=== PATIENT | female | born 1950 | race Caucasian/White ===

== ENCOUNTER → 2019-07-04 | Outpatient (CLI) | payer OTHER, MEDICARE | LOC: SJCVC 14:34 | DX: R06.09 Other forms of dyspnea (principal); I10 Essential (primary) hypertension; E78.5 Hyperlipidemia, unspecified; R06.00 Dyspnea, unspecified ==

== ENCOUNTER → 2019-10-09 | Outpatient (CLI) | payer OTHER, MEDICARE ==
[~2019-10-09] MED LIST: BENAZEPRIL HCL20 MG PO; CALCIUM CARBON500 MG PO; LITHOBID300 MG PO; PROZAC40 MG PO; SYNTHROID100 MC1 PO; VITAMIN B-125000 MCG PO
== END ==
LOC: SJCVCIMAG 13:42
PROVIDERS: ATTEND Internal Medicine
DX: R00.0 Tachycardia, unspecified (principal); R06.09 Other forms of dyspnea; I10 Essential (primary) hypertension; E78.5 Hyperlipidemia, unspecified; G47.33 Obstructive sleep apnea (adult) (pediatric); Z87.891 Personal history of nicotine dependence

== ENCOUNTER → 2019-10-11 | Outpatient (CLI) | payer OTHER, MEDICARE | LOC: LAB 08:00 | PROVIDERS: ATTEND Internal Medicine | DX: Z01.812 Encounter for preprocedural laboratory examination (principal); Z11.59 Encounter for screening for other viral diseases ==

== ENCOUNTER → 2019-10-16 | Outpatient (CLI) | payer OTHER, MEDICARE ==
[~2019-10-16] VITALS: Ht 152.4 cm; Wt 70.3 kg
[2019-10-16 07:33] VITALS: BP 143/68
--- NOTE | 2019-10-16 09:02 | CATHLAB ---
[facility] [place] [address] INVASIVE PROCEDURE REPORT Name: BILLIE RODRIGUEZ Room #: LEANDRA Lu#: [id number] Admission: 10/16/19 Attend Phys: Yuval Palm MD, Discharge: Date of : 46 Report #: [id number] THIS REPORT FOR: cc: JASMINE ELLIOTT NP, RUTENDO NP Lundgren, Craig H. MD [facility] ~ APPROVED REPORT Study performed: 10/16/2019 07:39:44 Patient Details Patient Status: Out-Patient Room #: The patient is a 69 year-old female Event Personnel Yuval Palm Yard Motor Operator, Cyndy Monte RTR, Leandro Valdez Carly RTR Monitor, Yuval Mcclendon RN RN, Viki Rai RN RN, Alicia Jara RTR Monitor, Bishnu Robert RTR X-Ray Tech Procedures Performed Art Access - R femoral artery* Left Heart Cath w/or w/o Coronaries [id number] [facility] Hemostasis w/ Mynx 29244 Initial Mod Sed Same Phys/QHP Gr5y [id number] Indication Chest pain Procedure Narrative The patient was brought electively to the Cardiac Catheterization Laboratory and was prepped and draped in a sterile manner. The Right Groin^ was infiltrated with 1% Lidocaine subcutaneous anesthesia. A PINNACLE 6FR Sheath #[id number] sheath was inserted into the RFA^. Coronary angiography was performed using coronary diagnostic catheters. The right coronary system was accessed and visualized with a JR4 catheter. The left coronary system was accessed and visualized with a JL4 catheter. The left ventricle was accessed and visualized with a PIGTAIL catheter. Left ventriculogram was performed in 30 degree projection. An aortogram of the abdominal aorta was performed. Closure device was deployed with a Fr MYNXGRIP 6/7F #[id number]. The patient tolerated the procedure well and there were no complications associated with the procedure. There was no hematoma. Intraoperative Conscious Sedation [address] [address] INVASIVE PROCEDURE REPORT Name: BILLIE RODRIGUEZ Room #: [facility]#: [id number] Admission: 10/16/19 Attend Phys: Yuval Palm, Discharge: Date of : 46 Report #: [id number] Sedation start time: 8:23 Case end Time: 8:43 Fentanyl 50 mcg Versed 1.5 mg Fluoro Time: 1.40 minutes Dose: DAP 2414.86 cGycm2 299 mGy Contrast Type and Amount: Omnipaque 85 ml Coronary Angiography The patient's coronary anatomy is co- dominant. Diagnostic Cath Left Main Normal left main LAD Normal left anterior descending Circumflex Large, codominant circumflex OM1 Normal OM1 OM2 Normal, bifurcating OM 2 L PDA Distal circumflex gave rise to the posterior descending which was angiographically normal Right Coronary Codominant right coronary, angiographically normal RPLV Small posterior lateral branch, angiographically normal Left Ventriculography The left ventricle is normal in size with normal contractility. The left ventricular ejection fraction is estimated to be 60-65%. Left ventricular wall motion abnormalities are not present. There is no mitral insufficiency. Hemodynamics The aortic pressure is 170/70 mmHg with a mean of 119 mmHg. The left ventricular pressure is 168/6 mmHg with a mean of mmHg. The left ventricular end diastolic pressure is 24 mmHg. Conclusion 1. Normal global and regional left ventricular systolic function. Ejection fraction 65% 2. Normal left main 3. Normal coronary vasculature. Codominant circulation <ELECTRONICALLY SIGNED> By: Yuval Palm MD, FACC 10/16/19901 1 1 Yuval Palm MD, FACC /INF
== END | disposition home or self-care (01) ==
LOC: CATH 06:35
PROVIDERS: ATTEND Internal Medicine
DX: R07.9 Chest pain, unspecified (principal); Z79.899 Other long term (current) drug therapy; Z98.890 Other specified postprocedural states